=== PATIENT | male | born 1985 | race Caucasian/White ===

== ENCOUNTER → 2016-12-19 | Outpatient (CLI) | payer BC ==
[~2016-12-19] MED LIST: ELIQUIS 5MG PO; NEXIUM 20MG20 MG PO; NORCO 325 MG-51 TAB PO; NORCO 325 MG-7.1 TAB PO; ULTRAM 50MG TAB50 MG PO; ZOFRAN 4MG T4 MG/TAB PO; ZOLOFT 100MG100 MG PO
== END ==
LOC: COL.VAS 09:32
DX: Z13.89 Encounter for screening for other disorder (principal); Z45.2 Encounter for adjustment and management of vascular access device

== ENCOUNTER 2016-12-21 09:37 | Outpatient (CLI) | payer BC ==
[2016-12-21] VITALS (8 sets, daily range): BP systolic 112–124; BP diastolic 69–87; PULSE 59–75; TEMP 97.2–97.5
[~2016-12-21] VITALS: Ht 190.7 cm; Wt 131.8 kg
== END 2016-12-21 17:05 | disposition home or self-care (01) ==
LOC: COL.CAR 09:37
DX: I82.402 Acute embolism and thrombosis of unspecified deep veins of left lower extremity (principal); Z45.2 Encounter for adjustment and management of vascular access device
CPT/HCPCS: C1769; J2250; J3010; J7120; Q9967